=== PATIENT | male | born 1955 | race American Indian/Alaskan Native ===

== ENCOUNTER 2016-11-01 16:19 | Emergency (ER) | payer SELFPAY ==
[2016-11-01] MEDS ORDERED: LASIX IV ONE ×2 (17:19→19:45)
[2016-11-01 17:45] LABS: Basophils % (Auto) 1.3 % (0.0-1.8); Eosinophils % (Auto) 0.8 % (0.0-4.3); Hematocrit 40.9 % (35.5-45.6); Hemoglobin 13.1 gm/dl (11.8-15.2); Mean Corpuscular HGB Conc 32 % (32-34); Mean Corpuscular Hemoglobin 27 pg (28-32); Mean Corpuscular Volume 83 fl (84-94); Platelet Count 183 K/mm3 (140-440); Red Cell Distribution Width 16.7 % (13.2-15.2); White Blood Count 5.6 K/mm3 (4.5-11.0)
[2016-11-01 17:56] LABS: Anion Gap 20 mmol/L; BUN/Creatinine Ratio 21.11; Blood Urea Nitrogen 19 mg/dL (9-20); Carbon Dioxide 25 mmol/L (22-30); Glucose 161 mg/dL (75-100); Potassium 4.1 mmol/L (3.6-5.0); Sodium 136 mmol/L (137-145)
[2016-11-01] MEDS ORDERED: ASPIRIN PO SCH (18:00)
[2016-11-01 18:08] LABS: INR 1.13 (0.87-1.13)
[2016-11-01 18:37] LABS: Alanine Aminotransferase 18 units/L (7-56); Albumin 3.8 g/dL (3.9-5); Alkaline Phosphatase 71 units/L (35-129); Creatine Kinase 57 units/L (55-170); Total Protein 7.6 g/dL (6.3-8.2)
[2016-11-01 18:40] LABS: Bilirubin,Direct < 0.2 mg/dL (0-0.2); Bilirubin,Indirect 0.6 mg/dL
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
[2016-11-01 22:21] VITALS: BP 110/62
--- NOTE | 2016-11-02 09:24 | XRay Report ---
Chest 2 views: History: Shortness of breath. Findings: One cardiomegaly. Trachea is midline. No consolidation, pneumothorax or pleural effusion. Impression: No acute cardiopulmonary findings.
== END 2016-11-01 22:21 | disposition home or self-care (01) ==
LOC: ED 16:19
DX: I50.22 Chronic systolic (congestive) heart failure (principal); E11.9 Type 2 diabetes mellitus without complications; E78.00 Pure hypercholesterolemia, unspecified; Z98.890 Other specified postprocedural states
CPT/HCPCS: 36415; 71020; 80048; 80074; 82550; 82962; 83880; 84484; 85025; 85610; 85730; 93005; 93010; 96374; 96376; 99284; J1940